=== PATIENT | female | born 1955 | race Caucasian/White ===

== ENCOUNTER → 2016-09-01 | Outpatient (CLI) | payer OTHER ==
--- NOTE | 2016-09-01 13:19 | MA ---
Diagnostic Digital Mammogram With iCAD Analysis Clinical Indications: Mammographic evaluation in a 61-year-old female with a personal history of righ t breast cancer treated with lumpectomy. Technique: Standard cephalocaudal projections are obtained. Digital breast tomosynthesis was performe d in the MLO projection with reconstruction at 1.0 mm slice thickness and composite MLO views reconst ructed. This examination is processed by the iCAD computer-aided detection system. Comparison: July 2015, July 2014, January 2014, May 2013, May 2012, April 2011, February 2010. Breast Density: Type B; Scattered fibroglandular densities. Findings: CAD was reviewed. Asymmetry at the right breast lumpectomy site is stable. No masses, suspi cious calcifications, or secondary signs of malignancy are seen. There has been no significant change in the appearance of either breast. Impression: Benign post lumpectomy mammography, BI-RADS 2. Recommendation: Routine mammographic screening in one year as long as physical examination is negativ e. A verbal report was given to the patient. [facility] will send a result letter to the patient. Negative mammography should not preclude additional workup of a clinically suspicious finding. The patient's information is entered into a reminder system with a target due date for her next mammo gram.
== END ==
LOC: FIMAGING 12:01
PROVIDERS: ATTEND Internal Medicine Hematology & Oncology
DX: R92.2 Inconclusive mammogram (principal); Z85.3 Personal history of malignant neoplasm of breast
CPT/HCPCS: G0204; G0279

== ENCOUNTER → 2017-10-08 | Outpatient (CLI) | payer OTHER | LOC: FIMAGING 12:45 | PROVIDERS: ATTEND Internal Medicine Hematology & Oncology | DX: N64.4 Mastodynia (principal); Z85.3 Personal history of malignant neoplasm of breast; Z92.3 Personal history of irradiation ==

== ENCOUNTER 2017-12-07 10:27 | Day surgery (SDC) | payer OTHER ==
[2017-12-07] MEDS ORDERED: LR 1,000 ML IV ONE (10:40)
[2017-12-07] MEDS ORDERED: LIDOCAINE 1% 2 ML INJ ID PRN (10:40)
--- NOTE | 2017-12-07 12:06 | PDGENHP ---
History & Physical Chief Complaint: Colon polyps History of Present Illness: h/o of large colon polyps Pertinent Past, Social, Family History: h/o factor 5, HHC Relevant Physical Exam: CV rrr s1s2 nl. chest CTA. Abd + bs soft Cardiorespiratory Assessment: asaiii
--- NOTE | 2017-12-07 12:10 | PDANEPAE ---
ANE History of Present Illness f/u colonoscopy ANE Past Medical History - Cardiovascular History Hx Hypertension: Yes Hx Arrhythmias: No Hx Chest Pain: No Hx Coronary Artery / Peripheral Vascular Disease: No Hx CHF / Valvular Disease: No Hx Palpitations: No Cardiovascular History Comment: HTN- UNTREATED AT THIS TIME PCP IS MONITORING - Pulmonary History Hx COPD: No Hx Asthma/Reactive Airway Disease: No Hx Recent Upper Respiratory Infection: No Hx Oxygen in Use at Home: No Hx Sleep Apnea: Yes Sleep Apnea Screening Result - Last Documented: Positive - Neurologic History Hx Cerebrovascular Accident: No Hx Seizures: No Hx Dementia: No - Endocrine History Hx Diabetes: No - Renal History Hx Renal Disorders: No - Liver History Hx Hepatic Disorders: No - Neurological & Psychiatric Hx Hx Neurological and Psychiatric Disorders: No Neurological / Psychiatric History Comment: DEPRESSION/ANXIETY - Cancer History Hx Cancer: Yes Cancer History Comment: BREAST CANCER 2011. CERVICAL PRE-CANCEROUS CELLS 1979 - Congenital Disorder History Hx Congenital Disorders: No - GI History Hx Gastrointestinal Disorders: No - Other Health History Other Health History: FECTOR V LIDEN: HETEROZYGUS. PULMOARY EMBOLISM 2001. HEMOCHROMATOSIS - Surgical History Prior Surgeries: LUMPECTOMY 2011. 1981. CARCINOMA IN SITU/ CONE BIOPSY 1980 ANE Review of Systems Review of Systems: - Exercise capacity METS (RN): 4 METS ANE Patient History - Allergies Allergies/Adverse Reactions: adhesive Allergy (Verified 01/28/14 13:15) amoxicillin [Amoxicillin] Allergy (Verified 10/14/13 10:57) Rash avocado [Avocado] Allergy (Verified 10/14/13 10:57) latex Allergy (Verified 01/28/14 13:15) STRAWBERRIES Allergy (Uncoded 06/07/12 16:21) Rash - Home Medications Home Medications: Ambien 5MG (RX) 10/14/13 [Last Taken 12/06/17] Lorazepam 10/14/13 [Last Taken 12/06/17] CeleXA 20 MG 09/06/14 [Last Taken 12/06/17] Vicodin 5-300 mg Tablet 11/02/17 [Last Taken 12/06/17] - NPO status NPO Since - Liquids (Date): 12/07/17 NPO Since - Liquids (Time): 01:30 NPO Since - Solids (Date): 12/06/17 NPO Since - Solids (Time): 08:45 - Smoking Hx Smoking Status: Former smoker - Family Anes Hx Family Hx Anesthesia Complications: NA ANE Labs/Vital Signs - Vital Signs Blood Pressure: 137/81 Heart Rate: 81 Respiratory Rate: 16 O2 Sat (%): 92 Height: 172.72 cm Weight: 111.13 kg ANE Physical Exam - Airway Neck exam: FROM Mallampati Score: Class 3 Mouth exam: normal dental/mouth exam - Pulmonary Pulmonary: no respiratory distress - Cardiovascular Cardiovascular: regular rate and rhythym - ASA Status ASA Status: II ANE Anesthesia Plan Total IV Anesthesia: Yes
[2017-12-07] MEDS ORDERED: PROPOFOL/EMULSION 500 MG/50 ML BOTTLE IV ONE (12:12)
[2017-12-07] MEDS ORDERED: NALOXONE HCL 0.4 MG/ML INJ IVP PRN (12:36)
--- NOTE | 2017-12-07 12:40 | GIREPORT ---
[facility] Surgical Services - Endoscopy Department Patient Name: Rita Arciniega Procedure Date: 12/07/2017 11:21 AM Patient Type: Outpatient Attending MD/ ER Physician: Augusta Land MD Procedure: Colonoscopy Indications: High risk colon cancer surveillance: Personal history of colonic polyps Providers: Augusta Land MD Medicines: Monitored Anesthesia Care Complications: No immediate complications. Description of Procedure: After obtaining informed consent, the scope was passed under direct vis ion. Throughout the procedure, the patient's blood pressure, pulse, and oxyg en saturations were monitored continuously. The Colonoscope with irrigatio n channel was introduced through the anus and advanced to the cecum, identified by appendiceal orifice and ileocecal valve. The colonoscopy was performed without difficulty. The patient tolerated the procedure well. The quality of the bowel preparation was good. The ileocecal valve, appendi ceal orifice, and rectum were photographed. Findings: The perianal and digital rectal examinations were normal. A 15 mm polyp was found in the descending colon. The polyp was sessile. The polyp was removed with a piecemeal technique using a cold snare. Resect ion and retrieval were complete. Estimated blood loss was minimal. Picture of polyp did not capture. Polyp was located at 70 cm. Estimated Blood Loss: Estimated blood loss was minimal. Post Op Diagnosis: - One 15 mm polyp in the descending colon, removed piecemeal using a co ld snare. Resected and retrieved. Recommendation: - Await pathology results. - Patient has a contact number available for emergencies. The signs and symptoms of potential delayed complications were discussed with the pat ient. Return to normal activities tomorrow. Written discharge instructions we re provided to the patient. - Resume previous diet. - Continue present medications. - Repeat colonoscopy in 1 year for surveillance at hospital with MAC. - Discharge patient to home. - Thank you for allowing me to participate in the care of your patient. Attending Participation: I personally performed the entire procedure. Augusta Land MD Augusta Land MD 12/07/2017 12:40:05 PM This report has been signed electronicallyAugusta Land MD Number of Addenda: 0 Note Initiated On: 12/07/2017 11:21 AM Total Procedure Duration Time 0 hours 18 minutes 49 seconds [email or web address]
--- NOTE | 2017-12-07 12:48 | POSTANESTH ---
Post Anesthetic Evaluation Cardiovascular Status: Normal, Stable Respiratory Status: Normal, Stable Level of Consciousness/Mental Status: Can Participate in Eval Pain Control: Adequate, Prn Tx Ordered Nausea/Vomiting Control: Adequate, Prn Tx Ordered Complications Possibly Related to Anesthesia: None Noted
[2017-12-07 13:34] VITALS: BP 135/77
== END 2017-12-07 14:07 | disposition home or self-care (01) ==
LOC: FSGY 10:27
PROVIDERS: ATTEND Internal Medicine Gastroenterology
PROC: 0DBM4ZX Excision of Descending Colon, Percutaneous Endoscopic Approach, Diagnostic (ICD-10-PCS; principal; 2017-12-07 12:00)
DX: D12.4 Benign neoplasm of descending colon (principal)
CPT/HCPCS: J2704

== ENCOUNTER → 2018-05-16 | Outpatient (CLI) | payer OTHER | LOC: FIMAGING 15:12 | PROVIDERS: ATTEND Internal Medicine | DX: Z13.6 Encounter for screening for cardiovascular disorders (principal); R16.0 Hepatomegaly, not elsewhere classified ==

== ENCOUNTER → 2018-06-03 | Outpatient (CLI) | payer OTHER ==
[~2018-06-03] MED LIST: IOPAMIDOL (ISOVUE-300) 100 ML BTL ONE
== END ==
LOC: FIMAGING 16:26
PROVIDERS: ATTEND Internal Medicine Hematology & Oncology
DX: K76.89 Other specified diseases of liver (principal); Z85.3 Personal history of malignant neoplasm of breast; Z80.0 Family history of malignant neoplasm of digestive organs
CPT/HCPCS: Q9967

== ENCOUNTER → 2018-12-24 | Outpatient (CLI) | payer OTHER | LOC: EMCIMAGING 11:56 | PROVIDERS: ATTEND Internal Medicine | DX: Z12.31 Encounter for screening mammogram for malignant neoplasm of breast (principal); Z85.3 Personal history of malignant neoplasm of breast | CPT/HCPCS: 77067-PN ==

== ENCOUNTER 2019-01-28 10:30 | Day surgery (SDC) | payer OTHER | END 2019-01-28 13:45 | disposition home or self-care (01) | LOC: FSGY 10:30 ==